=== PATIENT | female | born 1980 | race Caucasian/White ===

== ENCOUNTER 2017-10-03 08:59 | Inpatient (IN) | payer MEDICAID ==
[~2017-10-03] VITALS: Ht 167.6 cm; Wt 85.9 kg
[2017-10-03] MEDS ORDERED: SODIUM CHLORIDE FLUSH 10ML SYR IVF ONE ×2 (09:30→11:30)
[2017-10-03] MEDS ORDERED: SODIUM CHLORIDE 0.9% 1,000ML IVBOLUS ONE (09:30)
[2017-10-03 09:59] LABS: HEMATOCRIT 42.6 % (34.6-47.8); HEMOGLOBIN 14.4 g/dL (11.7-16.4); WHITE BLOOD COUNT 12.9 x10^3/uL (3.4-10)
[2017-10-03 10:09] LABS: ASPARTATE AMINO TRANSFERASE 45 U/L (15-37); BLOOD UREA NITROGEN 6 mg/dL (7-18)
[2017-10-03] MEDS ORDERED: SODIUM CHLORIDE 0.9% 1,000 ML IV ONE (11:30)
[2017-10-03] MEDS ORDERED: MORPHINE SULFATE 4 MG/ML, 1ML ONE (11:58)
[2017-10-03] MEDS ORDERED: ONDANSETRON 2MG/ML, 2ML ONE (11:59)
[2017-10-03] MEDS ORDERED: DOCUSATE 100 MG CAPSULE PO PRN (12:00)
[2017-10-03] MEDS ORDERED: ONDANSETRON 2MG/ML, 2ML IVPush ONE (12:00)
[2017-10-03] MEDS ORDERED: LABETALOL 5MG/ML, 20ML IVPush PRN (12:00)
[2017-10-03] MEDS ORDERED: POLYETHYLENE GLYCOL 17 GM PACKET PO PRN (12:00)
[2017-10-03] MEDS ORDERED: MORPHINE SULFATE 4 MG/ML, 1ML IVPush PRN (12:00)
[2017-10-03] MEDS ORDERED: HYDROcodone/APAP 5/325 TABLET PO PRN (12:00)
[2017-10-03] MEDS ORDERED: ACETAMINOPHEN 325 MG TABLET PO PRN (12:00)
[2017-10-03] MEDS ORDERED: BISACODYL 10 MG SUPP PR PRN (12:00)
[2017-10-03] MEDS: morphine SULFATE 10 MG/ML, 1ML IVPush PRN ×4 (12:51→21:59)
[2017-10-03] MEDS: PROMETHAZINE 25 MG/ML, 1ML IM PRN ×3 (12:51→21:58)
[2017-10-03 13:02] VITALS: BP 125/80
[2017-10-03] MEDS: NS + 20MEQ KCL 1,000 ML IV SCH ×2 (13:40→13:42)
[2017-10-03] MEDS: PIPERACILLIN/TAZO/PMX 3.375GM 50 ML IV SCH ×2 (13:40→13:42)
[2017-10-03 14:32] VITALS: BP 125/80
[2017-10-03] MEDS: ONDANSETRON 2MG/ML, 2ML IVPush PRN (18:55)
[2017-10-03 20:00] VITALS: BP 98/61
[2017-10-03] MEDS: PIPERACILLIN/TAZO 3.375 GM in SODIUM CHLORIDE 0.9% 50 ML IV SCH (21:23)
[2017-10-04] MEDS: NS + 20MEQ KCL 1,000 ML IV SCH ×3 (00:34→23:48)
[2017-10-04 00:41] VITALS: BP 120/76
[2017-10-04] MEDS: ONDANSETRON 2MG/ML, 2ML IVPush PRN ×4 (01:22→23:48)
[2017-10-04] MEDS: PROMETHAZINE 25 MG/ML, 1ML IM PRN ×5 (01:23→20:18)
[2017-10-04] MEDS: PIPERACILLIN/TAZO 3.375 GM in SODIUM CHLORIDE 0.9% 50 ML IV SCH ×4 (01:23→18:45)
[2017-10-04] MEDS: morphine SULFATE 10 MG/ML, 1ML IVPush PRN ×5 (01:23→14:09)
[2017-10-04 05:03] LABS: HEMATOCRIT 38.6 % (34.6-47.8); WHITE BLOOD COUNT 9.1 x10^3/uL (3.4-10)
[2017-10-04 05:10] LABS: BLOOD UREA NITROGEN 7 mg/dL (7-18)
[2017-10-04 05:14] LABS: ASPARTATE AMINO TRANSFERASE 36 U/L (15-37)
[2017-10-04 08:41] VITALS: BP 110/73
[2017-10-04 14:12] VITALS: BP 115/81
[2017-10-04] MEDS: HYDROmorphone 2 MG/ML, 1ML IVPush PRN ×4 (16:29→23:48)
[2017-10-04 17:58] LABS: PATH.CAST-FLAG NOT PRESENT; SPERM-FLAG NOT PRESENT; SRC-FLAG NOT PRESENT; XTAL-FLAG NOT PRESENT; YLC-FLAG NOT PRESENT
[2017-10-04 19:03] VITALS: BP 103/64
[2017-10-05 01:26] VITALS: BP 96/55
[2017-10-05] MEDS: PIPERACILLIN/TAZO 3.375 GM in SODIUM CHLORIDE 0.9% 50 ML IV SCH ×2 (01:55→06:55)
[2017-10-05] MEDS: HYDROmorphone 2 MG/ML, 1ML IVPush PRN ×5 (03:21→17:51)
[2017-10-05 05:32] LABS: BLOOD UREA NITROGEN 8 mg/dL (7-18)
[2017-10-05 05:36] LABS: ASPARTATE AMINO TRANSFERASE 36 U/L (15-37)
[2017-10-05 06:33] VITALS: BP 111/70
[2017-10-05] MEDS: ONDANSETRON 2MG/ML, 2ML IVPush PRN (06:56)
[2017-10-05] MEDS: PROMETHAZINE 25 MG/ML, 1ML IM PRN ×3 (06:56→17:35)
[2017-10-05 10:42] LABS: GAS LOT CARD-20261
[2017-10-05] MEDS: NS + 20MEQ KCL 1,000 ML IV SCH ×2 (12:21→13:00)
[2017-10-05 14:00] LABS: GAS OBC PASS; GASTRIC OCCULT BLD POSITIVE (NEGATIVE); GASTRIC PH 2 (1-7)
[2017-10-05] MEDS ORDERED: PANTOPRAZOLE 40 MG IV IVPush SCH (15:00)
== END 2017-10-05 18:00 | disposition left against medical advice (07) | DRG 862 ==
LOC: ED 11:03 → EDIP 11:30 → 4NOR 12:36
PROVIDERS: ADMIT Internal Medicine; ATTEND Internal Medicine
DX: T81.4XXA Infection following a procedure, initial encounter (principal); A41.9 Sepsis, unspecified organism; K56.600 Partial intestinal obstruction, unspecified as to cause; K50.90 Crohn's disease, unspecified, without complications; E44.1 Mild protein-calorie malnutrition; L02.211 Cutaneous abscess of abdominal wall; F17.210 Nicotine dependence, cigarettes, uncomplicated; Y83.8 Other surgical procedures as the cause of abnormal reaction of the patient, or of later complication, without mention of misadventure at the time of the procedure; Z53.21 Procedure and treatment not carried out due to patient leaving prior to being seen by health care provider; R74.0 Nonspecific elevation of levels of transaminase and lactic acid dehydrogenase [LDH]; G89.4 Chronic pain syndrome; Z68.30 Body mass index [BMI] 30.0-30.9, adult; Z85.038 Personal history of other malignant neoplasm of large intestine; Z93.2 Ileostomy status; Z93.3 Colostomy status; Z90.49 Acquired absence of other specified parts of digestive tract; Z98.51 Tubal ligation status; Y92.89 Other specified places as the place of occurrence of the external cause
CPT/HCPCS: 36415; 74000; 74250; 80053; 81001; 82271; 83605; 83690; 85025; 87040; 96361; 96374; 96375; J1170; J2405; J2543; J2550; J3480; J2270; J7030